=== PATIENT | male | born 1975 | race Two or more races ===

== ENCOUNTER 2018-10-13 08:03 | Emergency (ER) | payer SELFPAY ==
--- NOTE | 2018-10-13 10:25 | RADIOLOGY REPORT (SQ) ---
EXAM DESCRIPTION: CHEST SINGLE VIEW COMPLETED DATE/TIME: 10/13/2018 10:06 am REASON FOR STUDY: palpitations, chest pain COMPARISON: None. EXAM PARAMETERS: NUMBER OF VIEWS: One view. TECHNIQUE: Single frontal radiographic view of the chest acquired. RADIATION DOSE: NA LIMITATIONS: None. FINDINGS: LUNGS AND PLEURA: No opacities, masses or pneumothorax. No pleural effusion. MEDIASTINUM AND HILAR STRUCTURES: No masses. Contour normal. HEART AND VASCULAR STRUCTURES: Heart normal in size. Normal vasculature. BONES: No acute findings. HARDWARE: None in the chest. OTHER: No other significant finding. IMPRESSION: NO ACUTE RADIOGRAPHIC FINDING IN THE CHEST. TECHNICAL DOCUMENTATION: JOB ID: [id number] [employer]- All Rights Reserved Reading location - IP/workstation name: [email or web address]
[2018-10-13 10:46] LABS: ABSOLUTE BASOPHILS # (AUTO) 0.1 10^3/uL (0.0-0.2); ABSOLUTE EOSINOPHILS # (AUTO) 0.1 10^3/uL (0.0-0.6); ABSOLUTE LYMPHOCYTES (AUTO) 2.5 10^3/uL (0.5-4.7); ABSOLUTE MONOCYTES (AUTO) 0.7 10^3/uL (0.1-1.4); ABSOLUTE NEUT (AUTO) 6.5 10^3/uL (1.7-8.2); BASOPHILS % (AUTO) 0.7 % (0-2); EOSINOPHILS % (AUTO) 1.4 % (0-6); HEMATOCRIT 47.2 % (37.9-51.0); HEMOGLOBIN 15.8 g/dL (13.5-17.0); LYMPHOCYTES % (AUTO) 24.9 % (13-45); MEAN CORPUSCULAR HEMOGLOBIN 29.5 pg (27.0-33.4); MEAN CORPUSCULAR HGB CONC 33.5 g/dL (32.0-36.0); MEAN CORPUSCULAR VOLUME 88 fl (80-97); MONOCYTES % (AUTO) 7.4 % (3-13); PLATELET COUNT 303 10^3/uL (150-450); RED BLOOD COUNT 5.36 10^6/uL (4.35-5.55); RED CELL DISTRIBUTION WIDTH 13.5 % (11.5-14.0); SEGMENTED NEUTROPHILS % (AUTO) 65.6 % (42-78); TOTAL CELLS COUNTED % (AUTO) 100 %; WHITE BLOOD COUNT 9.9 10^3/uL (4.0-10.5)
[2018-10-13 10:55] LABS: ALANINE AMINOTRANSFERASE 37 U/L (21-72); ALBUMIN 4.8 g/dL (3.5-5.0); ALKALINE PHOSPHATASE 71 U/L (38-126); ANION GAP 12 (5-19); ASPARTATE AMINO TRANSFERASE 30 U/L (17-59); BILIRUBIN,DIRECT 0.4 mg/dL (0.0-0.4); BLOOD UREA NITROGEN 15 mg/dL (7-20); CARBON DIOXIDE 26 mmol/L (22-30); CHLORIDE 98 mmol/L (98-107); GLUCOSE 159 mg/dL (75-110); POTASSIUM 4.4 mmol/L (3.6-5.0); SODIUM 136.3 mmol/L (137-145); TOTAL PROTEIN 8.1 g/dL (6.3-8.2)
--- NOTE | 2018-10-13 14:05 | ER Document Report ---
ED Cardiac <JUANA SWANN - Last Filed: 10/13/18 16:01> - General Mode of Arrival: Ambulatory Information source: Patient TRAVEL OUTSIDE OF THE [place] IN LAST 30 DAYS: No <ZAIDA YUSUF - Last Filed: 10/13/18 22:49> - General Chief Complaint: Palpitations Stated Complaint: PALPITATIONS Time Seen by Provider: 10/13/18 09:33 Primary Care Provider: [facility] [Outside] - 10/14/18 (Fatoumata the Manager Office from [facility] to call your tomorrow to set up outpatient services. ) [facility] [Outside] - Follow up as needed Notes: Patient is an otherwise healthy 43-year-old male presented to the emergency department chief complaint of palpitations. Patient reports symptoms began this morning. Patient reports associated mild chest pain but only when the palpitations are present. He also reports increased stressors over the last several weeks. He denies any shortness of breath, nausea. He reports dizziness and shakiness. He denies any history of similar symptoms in the past. He does report a history of hypertension, states he takes enalapril and lisinopril. (ZAIDA YUSUF) - Related Data Allergies/Adverse Reactions: No Known Allergies Allergy (Verified 10/13/18 08:04) Past Medical History - General Information source: Patient - Social History Smoking Status: Never Smoker Chew tobacco use (# tins/day): No Frequency of alcohol use: Occasional Drug Abuse: Cocaine Family History: Reviewed & Not Pertinent Patient has suicidal ideation: Yes Patient has homicidal ideation: Yes - Only thoughts at times Renal/ Medical History: Denies: Hx Peritoneal Dialysis Past Surgical History: Reports: Hx Testicular Surgery <ZAIDA YUSUF - Last Filed: 10/13/18 22:49> Review of Systems - Review of Systems Constitutional: No symptoms reported EENT: No symptoms reported Cardiovascular: Chest pain, Palpitations Respiratory: No symptoms reported Gastrointestinal: No symptoms reported Genitourinary: No symptoms reported Male Genitourinary: No symptoms reported Musculoskeletal: No symptoms reported Skin: No symptoms reported Hematologic/Lymphatic: No symptoms reported Neurological/Psychological: Suicidal ideation <ZAIDA YUSUF - Last Filed: 10/13/18 22:49> Physical Exam <ZAIDA YUSUF - Last Filed: 10/13/18 22:49> - Vital signs Vitals: Temp Pulse Resp BP Pulse Ox 97.9 F 115 H 20 146/92 H 100 10/13/18 08:13 10/13/18 08:13 10/13/18 08:13 10/13/18 08:13 10/13/18 08:13 - Notes Notes: PHYSICAL EXAMINATION: GENERAL: Well-appearing, well-nourished and in no acute distress. HEAD: Atraumatic, normocephalic. EYES: Pupils equal round and reactive to light, extraocular movements intact, sclera anicteric, conjunctiva are normal. ENT: Nares patent, oropharynx clear without exudates. Moist mucous membranes. NECK: Normal range of motion, supple without lymphadenopathy LUNGS: Breath sounds clear to auscultation bilaterally and equal. No wheezes rales or rhonchi. HEART: Regular rate and rhythm without murmurs ABDOMEN: Soft, nontender, nondistended abdomen. No guarding, no rebound. No masses appreciated. Musculoskeletal: Normal range of motion, no pitting or edema. No cyanosis. NEUROLOGICAL: Cranial nerves grossly intact. Normal speech, normal gait. Normal sensory, motor exams PSYCH: Normal mood, normal affect. SKIN: Warm, Dry, normal turgor, no rashes or lesions noted. (ZAIDA YUSUF) Course - Laboratory Result Diagrams: 10/13/18 09:00 10/13/18 09:00 <JUANA SWANN - Last Filed: 10/13/18 16:01> - Laboratory Result Diagrams: 10/13/18 09:00 10/13/18 09:00 <ZAIDA YUSUF - Last Filed: 10/13/18 22:49> - Re-evaluation Re-evalutation: Patient's EKG was reviewed by me, shows a sinus tachycardia, rate 115, QTc 465, nonspecific ST abnormalities but no ST segment elevations or depressions to suggest ischemia. Patient currently chest pain-free at the time of my evaluation. I did use the [employer] translation system. CBC, CMP and troponin are all negative. Chest x-ray is unremarkable with no evidence of cardiomegaly, pneumothorax or infiltrates. I feel that his palpitations are most likely due to anxiety. Upon further discussion patient reported to the nurse that he has been having a lot of depression and mood swings lately. He states that he has had thoughts of suicide as well as homicidal ideations however he has been controlling these and not acting on them and has no plans. Patient is currently requesting to consult psych. Mental health team made medication recommendations and has arranged for outpatient follow-up for this patient. (ZAIDA YUSUF) - Vital Signs Vital signs: Temp Pulse Resp BP Pulse Ox 97.9 F 115 H 27 H 124/83 95 10/13/18 08:13 10/13/18 08:13 10/13/18 16:01 10/13/18 16:01 10/13/18 16:01 - Laboratory Laboratory results interpreted by me: 10/13/18 09:00 Sodium 136.3 L Glucose 159 H Discharge <JUANA SWANN - Last Filed: 10/13/18 16:01> <ZAIDA YUSUF - Last Filed: 10/13/18 22:49> - Discharge Clinical Impression: Suicidal ideation, Homicidal ideation, Mood changes Condition: Stable Disposition: HOME, SELF-CARE Additional Instructions: You have been evaluated by both medical and behavioral health providers while in the emergency department. You have been cleared from both acute medical and psychiatric services. You admitted to substance abuse. You should avoid substances as they alter you perception/cognition and inhibit you. They could also interfere with effectiveness of medication being prescribed. You should follow up with outpatient services for medication management and therapy. Linkage has been provided by the [facility] team to [facility]. Palpitations (Irregular/Rapid Heartrate) Irregular or rapid heartbeat is called "palpitation." To diagnose the c ause of palpitation, we have to "catch it in the act" with an EKG. Sinus Tachycardia: This is a rapid (but NORMAL) rhythm that can be due to fever, pain, anxiety, lack of sleep, over-exertion, or drugs. Cold medications, caffeine, and diet pills are particularly likely to cause tachycardia. Usually, all that's required is rest, reassurance, and avoiding caffeine, alcohol, nicotine, and unnecessary medicines. Paroxysmal Atrial Tachycardia (PAT): This abnormally rapid heartbeat is caused by a "short circuit" in the electrical system of the heart. It is not dangerous, unless other heart disease is present. These attacks of PAT may occur occasionally for years. Medication is available for treatment. Paroxysmal Atrial Fibrillation or Atrial Flutter: This is irregular electr ical activity in the upper heart chamber. These abnormal rhythms often occur with valve disease or in hearts damaged by hardening of the arteries. These rhythms usually require further testing, for example a cardiac echo. Premature Beats: Extra beats occur more commonly after caffeine, nicotine, alcohol, cold pills, diet pills. Emotional stress or fatigue also provoke them. Extra beats are only dangerous when heart disease is present. They usually need no treatment. If they're frequent, or if evidence of heart disease develops, medication can be given to suppress them. If we were unable to "catch" the palpitations on EKG, you should try to get an EKG immediately if the symptoms begin again. Contact the physician at once if you develop persistent lightheadedness, shortness of breath, chest pain, or swelling of the ankles. DEPRESSION: (mood changes are often related to depression and stress, can be Bipolar Disorder if significant mood changes) Your evaluation reveals that you have mental depression. While symptoms may be vague, they often include disturbance of sleep, fatigue, loss of appetite, and general loss of interest in life. While depression may be a side effect of drugs, or a reaction to a major change in your life, many cases have no known cause. If depression is acute, and related to a major loss in your life, you can expect it to clear completely with time. If you have been depressed a long time, are prone to repeated bouts of depression or low mood, or have been thinking of suicide, get help. Depression can be treated with anti-depressant medication and counselling. Long-term depression will often take a few weeks to clear, even with appropriate medication. Follow-up care is important. SUICIDAL IDEATION: Suicidal ideation is a common medical term for thoughts about suicide, which may be as detailed as a formulated plan, without the suicidal act itslf. Although most people who undergo suicidal ideation do not commit suicide, some go on to make suicide attempts. The range of suicidal ideation varies greatly from fleeting to detailed planning, role playing, and unsuccessful attempts. While thoughts about suicide are common, most people do not carry out serious actions to commit suicide. Based upon your evaluation and discussion with you, we believe you are not currently at risk to act upon your thoughts of suicide. HOMICIDAL IDEATION: Homicidal ideation is a common medical term for thoughts about homicide, which may be as detailed as a formulated plan, without the homicidal act itself. Although most people who undergo homicidal ideation do not commit homicide, some go on to make homicide attempts. The range of homicidal ideation varies greatly from fleeting to detailed planning, role playing, and unsuccessful attempts. While thoughts about homicide are common, most people do not carry out serious actions to commit homicide. Based upon your evaluation and discussion with you, we believe you are currently not at risk to act upon your thoughts of homicide. Follow Up Plan: You will be contacted by, Cheng Ham Interpreter from [facility] for linkage to outpatient services such as medication management and therapy from their local office. You have been provided the mental health resource sheet which highlighted and documented [facility] information, as well as their crisis number. If your symptoms persist or worsen please contact your physician immediately, utilize mobile crisis or return to the emergency department. Prescriptions: Olanzapine [Zyprexa 2.5 Mg Tablet] 2.5 mg PO BID #60 tablet Referrals: [facility] [Outside] - Follow up as needed [facility] [Outside] - 10/14/18 (TimurManager Office from [facility] to call your tomorrow to set up outpatient services. )
[2018-10-13] MEDS ORDERED: LORAZEPAM 0.5 MG TABLET PO ONE (15:43)
--- NOTE | 2018-10-13 16:26 | PSYCHOLOGICAL NOTE ---
Psych Note - Psych Note Date seen by psych provider: 10/13/18 Psych Note: Presenting Problem: Depression, SI, HI, admitted to using cocaine and alcohol on weekends, marijuana was regular but trying to quit. Diagnosis: Polysubstance Use Alcohol Use Disorder Moderate Cocaine Use Disorder Moderate Cannabis Use Disorder, Severe Unspecified Depressive Disorder R/O Unspecified Bipolar and Related Disorder Medication recommendations made by the psychiatric medical provider, Dr. Marichuy MD., includes: Add Zyprexa 2.5MG twice a day for mood stabilization/impulse control impression/Plan: Patient is cleared from acute psychiatric services. He denied SI, admitted to passive HI of just thoughts with no plans at people that bother him which causes him to get mad, he has never taken action. No observed psychosis. He noted family history of mental health. He reported the past couple days he has had chest tightness and pressure (anxiety symptoms, or from cocaine use), crying all the time for no reason and recalling past child leblanc memories which are upsetting. He admitted to using alcohol and cocaine on the weekends and marijuana was regular use but he is trying to quit. Provided psychoeducation on drugs effecting mood and cognition, as well as interference with medication effectiveness. Linked him with JONO, Fatoumata the Diving Supervisor, will be calling patient tomorrow. Provided patient with the outpatient MH resource sheet which highlighted [facility], documented Fatoumata's name and highlighted the [facility] number. Consulted with regarding the management and care of patient. ED Physician is agreement with recommendations.
[2018-10-13 16:31] VITALS: BP 124/83
--- NOTE | 2018-10-14 00:38 | EKG REPORT ---
SEVERITY:- ABNORMAL ECG - SINUS TACHYCARDIA NONSPECIFIC T ABNORMALITIES, INFERIOR LEADS : Confirmed by: Loulou Doty 14-Oct-2018 00:37:28
== END 2018-10-13 16:31 | disposition home or self-care (01) ==
LOC: ER 08:03
DX: R45.851 Suicidal ideations (principal); R45.850 Homicidal ideations; F39 Unspecified mood [affective] disorder; R07.9 Chest pain, unspecified; R00.2 Palpitations; R42 Dizziness and giddiness
CPT/HCPCS: 36415; 71045; 80053; 84484; 85025; 93005; 93010; 99285